=== PATIENT | female | born 1965 | race Caucasian/White ===

== ENCOUNTER → 2023-02-10 11:37 | Outpatient (CLI) | payer BC, SELFPAY ==
--- NOTE | 2023-02-10 11:48 | CT_ITS ---
FINAL REPORT CLINICAL HISTORY: ABDOMINAL PAIN, lt flank pain FINDINGS: Axial CT images of the abdomen and pelvis were obtained without intravenous contrast. Coronal reformatted images were also obtained.This study was performed with techniques to keep radiation doses as low as reasonably achievable (ALARA). Individualized dose reduction techniques using automated exposure control or adjustment of mA and/or kV according to the patient''s size were employed. Abdomen:The lung bases are clear. There are multiple nonobstructing bilateral calcifications measuring up to 4 mm in the renal pelves compatible with stones. No evidence of hydronephrosis is seen. The gallbladder has been surgically removed. There is an 11 mm probable cyst in the left kidney accurately characterized without contrast administration. Moderate intra-abdominal vascular calcifications are present. The liver, spleen and pancreas have an unremarkable, unenhanced appearance. No mass or adenopathy is seen. No inflammatory process is identified. Pelvis: Images of the pelvis reveal mild left hydroureter with a 4 mm left ureterovesicular junction stone present. Multiple phleboliths are also present in the pelvis. The patient has had a prior hysterectomy. The appendix is unremarkable in appearance. IMPRESSION: Mild left hydroureter in the pelvis with a 4 mm left UVJ stone. Multiple nonobstructing bilateral less than 4 mm in size renal stones. No hydronephrosis is identified. Probable cyst, 11 mm in size, and the left kidney, which can not be accurately characterized without intravenous contrast. Either CT with contrast or ultrasound might be helpful for further characterization. Reviewed, Interpreted and Dictated by Tripp Meyer III, MD Transcribed by Donna Escudero Authenticated and [facility]
== END ==
PROVIDERS: PCP Family Medicine; Visit Provider Nurse Practitioner Family
DX: R10.9 Unspecified abdominal pain (principal)
CPT/HCPCS: 74176

== ENCOUNTER 2023-09-26 09:06 | Emergency (ER) | payer BC, SELFPAY ==
[2023-09-26 09:25] VITALS: BP 148/97; PULSE 89; RESP 18; TEMP 36.9; O2SAT 99; BMI 29.1
[2023-09-26 09:50] LABS: UTC Influenza A Antigen Positive (Negative); UTC Influenza B Antigen Negative (Negative)
--- NOTE | 2023-09-26 09:50 | EXP.UTC ---
Discharge Plan Disposition Patient Disposition: Home, Self-Care Condition: Good Prescriptions Prescriptions: New benzonatate [benzonatate] 100 mg capsule 100 mg PO TIDP PRN (Reason: Cough) Qty: 30 0RF oseltamivir [Tamiflu] 75 mg capsule 75 mg PO BID Qty: 10 0RF ondansetron 4 mg Tablet,Disintegrating 4 mg PO Q8H PRN (Reason: Nausea) Qty: 12 0RF No Action cholecalciferol (vitamin D3) 1,250 mcg (50,000 unit) capsule 1,250 mcg PO WEEKLY Myrbetriq 50 mg tablet extended release 24 hr 50 mg PO DAILY Patient Comments: TAKE ONE TABLET BY MOUTH EVERY DAY Referrals Follow up/Referrals: Antwan Adams MD [Primary Care Provider] - See instructions Activity Restrictions/Add. Instructions Additional Instructions/Restrictions: Drink plenty of fluids. Take tylenol or ibuprofen for pain or fever. Take the medications as directed. Follow up with your regular doctor. GO TO THE ER FOR ANY WORSENING SYMPTOMS Clinical Impressions Clinical Impression: Influenza A Instructions Patient Instructions: DI for Influenza -- Adult, Oseltamivir Discharge ED Provider: David Valdivia [facility] General Stated complaint: dizzy nausea Mode of Arrival: Ambulatory Source of Information: Patient Limitations: No Limitations Time Seen by Provider: 09/26/23 09:30 Description of Symptoms (Recalled from Triage Doc. by RN): Pt stated that on 09/25/2023 she started to get dizzy when every she looked down. She complains of sinus pressure MARSHALL, and feels nauseous. She denies hitting head, vision issues, or cardiac symptoms. HEENT Symptoms (Recalled from RN notes): Yes Resp Symptoms (Recalled from RN notes): No Skin Symptoms (Recalled from RN notes): No MS Symptoms (Recalled from RN notes): No Functional Status (Recalled from RN notes): n/a History of Present Illness Provider Complaint: She states that for the past 1 day she has had intermittent dizziness, headache, sinus congestion, sinus drainage, chills, and low grade fever. She has been exposed to influenza. Related Data Home Medications Medication Instructions Recorded Confirmed cholecalciferol (vitamin D3) 1,250 1,250 mcg PO WEEKLY 12/05/22 09/26/23 mcg (50,000 unit) capsule mirabegron 50 mg tablet,extended 50 mg PO DAILY 09/26/23 09/26/23 release 24 hr (Myrbetriq) Previous Rx's Medication Instructions Recorded benzonatate 100 mg capsule 100 mg PO TIDP PRN Cough #30 caps 09/26/23 ondansetron 4 mg disintegrating 4 mg PO Q8H PRN Nausea #12 tabs 09/26/23 tablet oseltamivir 75 mg capsule (Tamiflu) 75 mg PO BID #10 caps 09/26/23 Allergies Allergy/AdvReac Type Severity Reaction Status Date / Time Penicillins [PENICILLINS] Allergy Mild Verified 09/26/23 09:36 Worker's Comp Is this a Worker's Comp case?: No [facility] Disclaimer: The information contained in this section may have been updated after the patient was seen, as this information can be updated by other users. Social History Smoking Status: Never smoker alcohol intake: never substance use type: denies use current occupational status: unemployed Travel in the last 8 weeks: None ROS Obtained: Yes All systems reviewed & no additional complaints except as documented Constitutional Constitutional: Reports chills and Reports fever(s) Eyes Eyes: Denies eye discharge ENT Ears, Nose, Mouth, and Throat: Reports as per HPI Cardiovascular Cardiovascular: Denies chest pain Respiratory Respiratory: Denies chest congestion and Reports cough Gastrointestinal Gastrointestingal: Reports nausea; Denies abdominal pain, constipation, cramping, diarrhea or vomiting Musculoskeletal Musculoskeletal: Denies arthralgias Integumentary/Breasts Skin/Breast: Denies rash Neurologic Neurologic: Denies paresthesias Physical Exam General General appearance: alert and in no apparent distress Head Head exam: atraumatic, normocephalic and normal inspection Eye Eye exam: Present normal appearance, PERRL and EOMI ENT ENT exam: Present mucous membranes moist and normal external ear exam Expanded ENT Exam TM/Canal exam: Bilateral TM: erythema and bulging Nose exam: Absent sinus tenderness Mouth exam: Present normal external inspection; Absent drooling Teeth exam: Present normal inspection Throat exam: Present tonsillar erythema, tonsillomegaly and tonsillar exudate Neck Neck exam: Present normal inspection, full ROM and trachea midline; Absent tenderness, meningismus or lymphadenopathy Chest Chest inspection: Present normal inspection and symmetric chest wall rise; Absent tenderness Respiratory Respiratory exam: Present normal lung sounds bilaterally; Absent respiratory distress, wheezes or stridor Cardiovascular Cardiovascular exam: Present regular rate and normal rhythm; Absent systolic murmur or diastolic murmur Abdominal Exam Abdominal exam: Present soft and normal bowel sounds; Absent distention, tenderness, guarding, rebound or rigidity Extremities Exam Extremities exam: Present normal inspection and normal capillary refill; Absent calf tenderness Back Exam Back exam: Present normal inspection and full ROM; Absent tenderness, CVA tenderness (R) or CVA tenderness (L) Neurological Exam Neurological exam: Present alert, oriented X3 and CN II-XII intact Psychiatric Psychiatric exam: Present normal affect and normal mood Skin Skin exam: Present warm, dry, intact and normal color Medical Decision Making Medical Records Medical records reviewed: No I reviewed the patient's medical records. Edward Inquiry Pt receiving controlled substance: No Vital Signs: 09/26/23 09:25 Temperature 98.4 F Temperature Source Oral Pulse Rate [Right Radial] 89 Respiratory Rate 18 Blood Pressure [Right Arm] 148/97 H Blood Pressure Mean [Right Arm] 114 Blood Pressure Source [Right Arm] Automatic Cuff Blood Pressure Position [Right Arm] Sitting 02 Sat by Pulse Oximetry 99 Oxygen Delivery Method Room Air Lab Data Lab results reviewed: Yes I reviewed the patient's lab results.
[2023-09-26 09:59] VITALS: BP 148/97; PULSE 89; RESP 18; TEMP 36.9; O2SAT 99
== END 2023-09-26 10:04 | disposition home or self-care (01) ==
PROVIDERS: Emergency Provider Nurse Practitioner Family; PCP Family Medicine
DX: J10.1 Influenza due to other identified influenza virus with other respiratory manifestations (principal); R11.0 Nausea; R42 Dizziness and giddiness; R51.9 Headache, unspecified; R09.81 Nasal congestion; R50.9 Fever, unspecified
CPT/HCPCS: 87804; 99204; 99212; G0463

== ENCOUNTER 2023-10-30 14:48 | Outpatient (CLI) | payer OTHER, SELFPAY ==
--- NOTE | 2023-10-30 14:56 | XR_ITS ---
FINAL REPORT CLINICAL HISTORY: LEFT SIDED CHEST WALL PAIN FINDINGS: Two views of the chest were obtained. The heart size and pulmonary vascularity are within normal limits. The mediastinum is normal. No acute pulmonary abnormality is identified. There is no pneumothorax. The bony thorax is intact. IMPRESSION: No active cardiopulmonary disease. Reviewed, Interpreted and Dictated by Tripp Meyer III, MD Transcribed by Binta Loya Authenticated and [facility]
--- NOTE | 2023-10-30 14:56 | XR_ITS ---
FINAL REPORT CLINICAL HISTORY: LEFT-SIDED CHEST WALL PAIN FINDINGS: Left ribs Three views were obtained. There is mild irregularity of the left 9th distal rib, nondisplaced fracture is not excluded. IMPRESSION: Possible fracture as above. Reviewed, Interpreted and Dictated by Tripp Meyer III, MD Transcribed by Binta Loya Authenticated and . [facility]
== END 2023-10-30 23:59 ==
LOC: RAD 14:52
PROVIDERS: PCP Registered Nurse; Visit Provider Family Medicine
DX: R07.89 Other chest pain (principal)
CPT/HCPCS: 71046; 71100